=== PATIENT | male | born 1990 | race Two or more races ===

== ENCOUNTER 2018-11-21 16:49 | Emergency (ER) | payer SELFPAY ==
[~2018-11-21] VITALS: Ht 180.3 cm; Wt 110.0 kg
[2018-11-21 22:37] VITALS: BP 158/94
== END 2018-11-21 22:40 | disposition home or self-care (01) ==
LOC: ER 16:49
DX: S80.11XA Contusion of right lower leg, initial encounter (principal); Z88.0 Allergy status to penicillin; V89.2XXA Person injured in unspecified motor-vehicle accident, traffic, initial encounter; Y93.89 Activity, other specified; Y92.89 Other specified places as the place of occurrence of the external cause; Y99.8 Other external cause status
CPT/HCPCS: 73590; 99283